=== PATIENT | female | born 1975 | race Caucasian/White ===

== ENCOUNTER → 2016-12-03 | Outpatient (CLI) | payer OTHER ==
[~2016-12-03] MED LIST: AMITRYPTYLINE PO; ATARAX; ATARAX PO; BACTRIM DS TABL1 TA1 PO; CELEXA PO; CIPRO PO; CIPRO250 MG PO; CLEOCIN PO; DELSYM30 MG/5 M1 PO; DOXYCYCLINE150 MG PO; FLAGYL; FLAGYL PO; HYDROXYZINE HCL25 M1 PO; IMITREX25 MG PO; KEFLEX PO; KEFLEX500 MG PO; LORTAB 5/500 TA1 TA1 PO; MAXALT5 MG PO; MEDROL4 MG/DOSE- PO; ORUDIS75 M1 DOB; ORUDIS75 M1 PO; PHENERGAN PO; PHENERGAN W/CO120 ML PO; PHENERGAN25 M1 PO; PRILOSEC20 MG PO; PYRIDIUM PO; REMERON; REMERON PO; TOPAMAX50 MG PO; TRAZODONE PO; TRIAMCINOLONE A15 G3 EXT; ULTRAM PO; VIBRAMYCIN100 M1 PO; VICODIN 5/1 TAB 5/50 PO; VICODIN 5/500 T1 TAB PO; ZANTAC; ZANTAC150 MG PO; ZITHROMAX PO; ZMAX ADULT2 GM/60 ML PO; ZOLOFT; ZOLOFT PO
--- NOTE | ~2016-12-03 | CR151 ---
[facility] A Service of [facility] & [facility] RADIOLOGY TEXT RESULTS PATIENT: FIORELLA PULLIAM LOCATION: [facility] : 79 UNIT #: [id number] AGE: [address]: COURTNEY QUEEN APRN SEX: F ORDER DR: [id number] [facility] [address] [place], [place] [address] [id number] O MR#: [id number] Acc #: [id number] NAME: FIORELLA PULLIAM : 1975 SEX: F STUDY DATE/TIME: 12/03/2016 10:18 UNIT: [facility] ROOM: STUDY DESCRIPTION: CR Hip Min 2 Views Rt Attending Physician: Courtney Queen A.P.R.N. Referring Physician: Courtney Queen A.P.R.N. Ordering Physician: Courtney Queen A.P.R.N. Primary Care Physician: Courtney Queen A.P.R.N. MEDICAL IMAGING REPORT This report is preliminary unless electronic signature is present EXAM Right hip, 2 views, 12/03/2016, 1018 hours. CLINICAL HISTORY 41-year-old with 3-year history of bilateral hip pain, 5-year history of fibromyalgia. COMPARISON None FINDINGS AP pelvis and frog lateral view right hip demonstrate normal bone density. There is trace spurring at the pubic symphysis. There is no hip joint space loss, spurring, or evidence of avascular crisis. IMPRESSION Negative right hip. Dictated by... Waleska Olivarez M.D. THIS IS AN ELECTRONICALLY VERIFIED REPORT Waleska Olivarez M.D. at 12/04/2016 9:28 AM LAKHWINDER/taylor TD: 12/03/2016 14:49 JOB #: [id number] MEDICAL IMAGING REPORT Page 1 of 1 COPY
--- NOTE | ~2016-12-03 | CR150 ---
[facility] A Service of [facility] & [facility] RADIOLOGY TEXT RESULTS PATIENT: FIORELLA PULLIAM LOCATION: [facility] : 79 UNIT #: [id number] AGE: [address]: COURTNEY QUEEN APRN SEX: F ORDER DR: [id number] [facility] [address] [place], [place] [address] [id number] O MR#: [id number] Acc #: [id number] NAME: FIORELLA PULLIAM : 1975 SEX: F STUDY DATE/TIME: 12/03/2016 10:18 UNIT: [facility] ROOM: STUDY DESCRIPTION: CR Hip Min 2 Views Lt Attending Physician: Courtney Queen A.P.R.N. Referring Physician: Courtney Queen A.P.R.N. Ordering Physician: Courtney Queen A.P.R.N. Primary Care Physician: Courtney Queen A.P.R.N. MEDICAL IMAGING REPORT This report is preliminary unless electronic signature is present EXAM Left hip, 12/03/2016 10:18 hours HISTORY 41-year-old with complaint of bilateral hip pain for 3 years. Diagnosis of fibromyalgia 5 years ago. No acute injury. COMPARISON Right hip film and pelvis, 12/03/2016 FINDINGS AP pelvis and frog lateral view left hip demonstrate no joint space loss, spurring or evidence of avascular necrosis. There is mild spurring at the pubic symphysis. IMPRESSION Normal left hip. There is mild spurring at the pubic symphysis. Dictated by... Waleska Olivarez M.D. THIS IS AN ELECTRONICALLY VERIFIED REPORT Waleska Olivarez M.D. at 12/04/2016 9:28 AM Ritesh TD: 12/03/2016 14:44 JOB #: [id number] MEDICAL IMAGING REPORT Page 1 of 1 COPY
== END | disposition home or self-care (01) ==
LOC: CRAD 10:06
DX: M25.551 Pain in right hip (principal); M25.552 Pain in left hip; M77.8 Other enthesopathies, not elsewhere classified
CPT/HCPCS: 73502